=== PATIENT | male | born 1960 | race Caucasian/White ===

== ENCOUNTER 2017-12-30 09:01 | Emergency (ER) | payer OTHER, SELFPAY ==
[2017-12-30 09:01] VITALS: BP 164/99; PULSE 57; RESP 14; TEMP 36.9; O2SAT 98; BMI 29.3
--- NOTE | 2017-12-30 09:15 | RAD_ITS ---
STUDY: X-RAY CHEST REASON FOR EXAM: Male, 57 years old. 3 hour history of chest pain. TECHNIQUE: PA and lateral views of the chest. COMPARISON: None. FINDINGS: EKG electrodes are seen. The lungs are clear and expanded. There is no demonstrated pleural abnormality. Normal size heart. Normal mediastinum and jamie. Normal visualized pulmonary arteries. Normal visualized aortic arch and descending thoracic aorta. There are diffuse degenerative changes of the visualized thoracic spine. Normal visualized ribs, clavicles, and shoulders. There is no demonstrated abnormality of the visualized soft tissue structures of the upper abdomen. RAD/Chest PA and Lateral IMPRESSION: No acute abnormality is seen. Electronically Signed: Leo Lema MD at 10:36 EST Tel [phone], Service support ,
--- NOTE | 2017-12-30 09:15 | EKG12_ITS ---
Test Reason : CP Blood Pressure : / mmHG Vent. Rate : 056 BPM Atrial Rate : 056 BPM P-R Int : 184 ms QRS Dur : 098 ms QT Int : 414 ms P-R-T Axes : 001 021 044 degrees QTc Int : 399 ms Sinus bradycardia Otherwise normal ECG Confirmed by DANIEL URVALCABA MD ([id number]), slot editor GUY LAZO ([id number]) on 01/03/2018 4:36:09 PM Referred By: JESS
--- NOTE | 2017-12-30 09:22 | ED.DCSUM_ITS ---
- ER Visit Summary Date of Service: 12/30/17 Chief Complaint: [] Chest pain History of Present Illness: The patient is a 57 M [] complaining of midsternal chest pain beginning 3 hours ago while driving. Reports he was driving back from a job site. He felt as if it may have been indigestion and took his Prevacid, however this did not relieve his symptoms. He took his blood pressure at home with an automated machine and got a 180/90 reading. He reports he recently was started on blood pressure medication 1 month ago and reports that he has been compliant with losartan. He denies any shortness of breath or diaphoresis with these symptoms. Reports slight radiation to the right side of his neck. Physical Examination: [] Afebrile, vital signs stable. 57-year-old male no acute distress. Cardiovascular exam is regular rate and rhythm. Lungs are clear to auscultation. Abdomen is soft and nontender. No lower extremity edema. Remainder of exam is unremarkable. Test Results: [] Chest x-ray: Negative EKG: Normal sinus rhythm rate of 56 without ischemic changes or ectopy. EKG #2: Normal sinus rhythm, rate of 53 without ischemic changes or ectopy. Labs: Negative. Troponin negative. Troponin #2 negative. Emergency Department Course and Treatment: [] Patient was evaluated for chest pain. His SRI risk score is 0 out of 7. He underwent routine screening including a delta troponin with a repeat EKG which were both negative. He reportedly was symptom-free after one nitroglycerin tablet. Patient was strongly encouraged to follow-up with his primary care physician and receive an outpatient stress test. He was instructed to return should he have further chest pain. He voices understanding of discharge instructions and is amenable to outpatient follow-up. All questions answered in layman's terms. Treatment Plan: [] Follow-up with PCP for outpatient stress test. Disposition: [] Discharge, stable. Impression: [] Chest pain This note was generated with [employer] dictation software. It may contain incorrect words, spelling, and punctuation that were not noted in review of the chart prior to signing ED Disposition - Plan for ED Patient: Chief Complaint: Chest Pain Referrals: [facility] Doctor,Out of [NON-STAFF] -
[2017-12-30 09:24] LABS: Absolute Lymphocyte Count 2.19 X10^3/ul (0.83-4.51); Absolute Neutrophil Count 3.8 X10^3/uL (2.0-7.7); Basophil# 0.05 X10^3/uL; Basophil% 0.7 % (0-1); Eosinophil# 0.22 X10^3/uL; Eosinophils% 3.3 % (0-5); Hematocrit 46.3 % (40-54); Hemoglobin 15.6 g/dl (13.0-16.5); Lymphocyte # 2.19 X10^3/ul (4.0); Lymphocyte % 32.4 % (19-41); Mean Corp Hgb Conc 33.7 g/gl (32-36); Mean Corpuscular Hgb 30.8 pg (27.0-32.0); Mean Corpuscular Volume 91.5 fL (80-94); Mean Platelet Vol. 9.1 fl (6.2-12.0); Monocyte# 0.51 X10^3/uL; Monocyte% 7.5 % (0-10); Neutrophil # 3.76 X10^3/uL (2.7-7.7); Neutrophil % 55.7 % (47-70); Platelet Count 250 K/mm3 (150-450); RBC Distribution Width SD 42.7 fl (35.1-43.9); Red Blood Count 5.06 M/mm3 (4.6-6.2); White Blood Count 6.8 K/mm3 (4.4-11.0)
[2017-12-30 09:25] LABS: POSITIVE COUNT NO; POSITIVE DIFFERENTIAL NO; POSITIVE MORPHOLOGY NO
[2017-12-30] MEDS: Aspirin 81 MG TAB.CHEW 324 MG PO (09:25)
[2017-12-30 09:27] VITALS: BP 160/99; PULSE 63
[2017-12-30 09:32] LABS: D-Dimer Quantitative (DVT/PE) < 0.27 FEU/ug/m (0.27-0.49)
[2017-12-30 09:36] LABS: Anion Gap 7 (5-15); BUN 19 mg/dL (7-18); BUN/Creat Ratio 18.3 RATIO (10-20); Calcium,Total 8.9 mg/dL (8.5-10.1); Chloride 106 mmol/L (98-107); Creatinine, Serum 1.04 mg/dL (0.70-1.30); EST Glomerular Filtration Rate 78 mL/min (>60); Est Glom Filt Rate - Afr Amer 94 mL/min (>60); Estimated Creatinine Clearance 77.42 ml/min; Glucose 105 mg/dL (74-106); Potassium 3.8 mmol/L (3.5-5.1); Sodium Level 142 mmol/L (136-145)
[2017-12-30 10:40] VITALS: BP 138/86; PULSE 54; RESP 16; O2SAT 98
--- NOTE | 2017-12-30 10:57 | EKG12_ITS ---
Test Reason : CP REPEAT Blood Pressure : / mmHG Vent. Rate : 053 BPM Atrial Rate : 053 BPM P-R Int : 200 ms QRS Dur : 090 ms QT Int : 424 ms P-R-T Axes : 013 021 035 degrees QTc Int : 397 ms Sinus bradycardia Otherwise normal ECG Confirmed by DANIEL RUVALCABA MD ([id number]), communications editor GUY LAZO ([id number]) on 01/03/2018 4:36:35 PM Referred By: IJEOMA Confirmed By:DANIEL RUVALCABA MD
[2017-12-30 11:00] VITALS: BP 140/94; PULSE 52; RESP 14; O2SAT 98
--- NOTE | 2017-12-30 11:50 | ED.DEP ---
ED Disposition - Plan for ED Patient: Disposition: Home or Assisted Living Chief Complaint: Chest Pain Instructions: ED Chest Pain Atypical Unkn Cause Referrals: [facility],Out of [NON-STAFF] -
[2017-12-30 11:52] VITALS: BP 143/85; PULSE 62; RESP 16; O2SAT 98
--- NOTE | 2017-12-30 12:03 | ED.RN ---
1200-Verbal and written d/c instructions given. All questions answered. Skin w/d. ABCs intact. Gait steady out of department.
== END 2017-12-30 12:04 | disposition home or self-care (01) ==
PROVIDERS: Emergency Provider Emergency Medicine; Family Provider Family Medicine; PCP Family Medicine
DX: R07.89 Other chest pain (principal); E78.00 Pure hypercholesterolemia, unspecified; K21.9 Gastro-esophageal reflux disease without esophagitis; M10.9 Gout, unspecified; F32.9 Major depressive disorder, single episode, unspecified; Z79.899 Other long term (current) drug therapy
CPT/HCPCS: 71046; 80048; 84484; 85025; 85379; 93005; 99285; A4216

== ENCOUNTER → 2020-10-06 08:09 | Outpatient (CLI) | payer OTHER, SELFPAY ==
--- NOTE | 2020-10-06 08:15 | US_ITS ---
STUDY: ABDOMINAL ULTRASOUND - RIGHT UPPER QUADRANT REASON FOR VISIT: Male, 59 years old rug pain TECHNIQUE: Ultrasound evaluation of the right upper quadrant was performed with real-time and static alvarez-scale imaging. TECHNICAL QUALITY: Adequate. COMPARISON: None. FINDINGS: Liver: The liver measures 12.9 cm. There is normal echogenicity of the liver. The bile ducts are within normal limits. There is hepatic color flow. The direction of portal flow is hepatopetal. There is no demonstrated mass lesion. Gallbladder: Normal distended gallbladder. The gallbladder wall measures 2.0 mm. There is a negative sonographic Bran''s sign. There is no pericholecystic fluid. There are no gallstones. Common Bile Duct (C.B.D.): The common bile duct measures 4.0 mm. Pancreas: Normal size of the head, body and tail of the pancreas. There is normal echogenicity of the pancreas. There is no demonstrated pancreatic mass or cyst. Right Kidney: Normal size of the right kidney. The right kidney measures 10.9 cm x 5.1 cm x 5.6 cm. Normal renal cortex. The right cortex measures 1.8 cm. There is no demonstrated renal mass or cyst. There is no right hydronephrosis. US/Abdomen Limited IMPRESSION: Normal right upper quadrant ultrasound examination. Electronically Signed: Leo Lema, at 12:50 EST , Service support ,
== END ==
PROVIDERS: PCP Family Medicine; Referring Provider Physician Assistant; Visit Provider Physician Assistant
DX: R10.11 Right upper quadrant pain (principal); F10.99 Alcohol use, unspecified with unspecified alcohol-induced disorder
CPT/HCPCS: 76705

== ENCOUNTER 2022-01-23 09:25 | Emergency (ER) | payer OTHER, SELFPAY ==
[2022-01-23 09:27] VITALS: BP 170/102; PULSE 56; RESP 14; TEMP 35.9; O2SAT 98; BMI 28.8
--- NOTE | 2022-01-23 09:44 | RAD_ITS ---
STUDY: X-RAY CHEST REASON FOR EXAM: Male, 61 years old. chest pain TECHNIQUE: Single AP portable view of the chest. COMPARISON: 12/30/2017 FINDINGS: The lungs are clear and expanded. There is no demonstrated pleural abnormality. Normal size heart. Normal mediastinum and jamie. Normal visualized pulmonary arteries. Normal visualized aortic arch and descending thoracic aorta. Normal visualized thoracic spine. Normal visualized ribs, clavicles, and shoulders. There is no demonstrated abnormality of the visualized soft tissue structures of the upper abdomen. RAD/Chest 1 View (Portable) IMPRESSION: Normal x-ray examination of the chest. Electronically Signed: Dipesh Hilario MD at 10:34 EDT ,
--- NOTE | 2022-01-23 09:44 | EKG12_ITS ---
Test Reason : Blood Pressure : / mmHG Vent. Rate : 062 BPM Atrial Rate : 062 BPM P-R Int : 198 ms QRS Dur : 094 ms QT Int : 406 ms P-R-T Axes : 041 027 048 degrees QTc Int : 412 ms Normal sinus rhythm Normal ECG Confirmed by PEG EDMONDS, DANIEL ([id number]), graphic editor LAVON ANTON ([id number]) on 01/26/2022 10:54:37 AM Referred By: COOPER Confirmed By:DANIEL RUVALCABA MD
--- NOTE | 2022-01-23 09:45 | EDS_ITS ---
HPI History of Present Illness Chief Complaint: Chest Pain Detail of Chief Complaint: Chest pain that started last evening around 3 AM. Informant: patient Narrative Narrative: Patient presents with chest discomfort S around 3 AM last evening. Patient describes a tightness without any radiation. He was nauseated and gagged and felt lightheaded. Currently rates the discomfort a 3 or 4 out of 10. Patient states that he thinks it may be anxiety as he feels anxious. Patient does have history of anxiety and depression and had been off his depression medications for several months but then started feeling depressed again so his primary care physician started him on escitalopram about 4 5 days ago. Patient has been drinking alcohol and believes he is an alcoholic. Patient states he had 3 bourbons last night and 3 beers. He would like to go through detox from alcohol. Patient has had fleeting thoughts of self-harm but does not feel like he would act on them. Patient has no plan on harming himself. Prior Similar Symptoms: No PFSH PFSH Medical History Alcohol use, unspecified with unspecified alcohol-induced disorder Anxiety Essential hypertension Gout Hyperlipidemia Insomnia Home Medications losartan 50 mg tablet 50 mg PO DAILY 12/30/21 [History Last Taken Unknown] simvastatin 20 mg tablet 20 mg PO DAILY 12/30/21 [History Last Taken Unknown] omeprazole 20 mg capsule,delayed release 20 mg PO .QOD cap 01/06/22 [History Last Taken Unknown] escitalopram oxalate 10 mg PO DAILY 01/23/22 [History Last Taken Unknown] lorazepam [Ativan] 1 mg PO TID PRN #10 tab 01/23/22 [Rx Last Taken Unknown] Allergy/AdvReac Type Severity Reaction Status Date / Time No Known Allergies Allergy Verified 01/23/22 09:27 Family History Mother Breast cancer Sister Breast cancer Social History Smoking Status: Former smoker alcohol intake: current alcohol intake frequency: 0-2 drinks per day ROS ROS ED ROS Narrative Anxiety, depression Review of Systems ROS Unobtainable: other Constitutional Constitutional ED: Reports lethargy; Denies chills, fever(s), sweats or weight loss Eyes Eyes: Denies blurry vision, change in vision or diplopia ENT ENT ED: Denies rhinorrhea or sore throat Cardiovascular Cardiovascular: Reports chest pain and racing heartbeat; Denies orthopnea Respiratory/Chest Respiratory/Chest: Reports dyspnea and dyspnea on exertion; Denies cough, orthopnea or sputum Gastrointestinal Gastrointestinal: Reports nausea; Denies abdominal pain, diarrhea or vomiting Genitourinary Genitourinary ED: Denies dysuria, hematuria or urinary frequency Musculoskeletal Musculoskeletal: Denies arthralgias, back pain, myalgias or neck pain Integumentary Denies abscess, Abrasions or rash Neurologic Neurologic: Denies headache(s) or weakness Psychiatric Psychiatric: Denies anxiety, depression or suicidal thoughts Endocrine Endocrinology: Denies polydipsia, polyphagia or polyuria Hematologic/Lymphatic Hematologic/Lymphatic: Denies easy bleeding, easy bruising or lymphadenopathy Allergic/Immunologic Allergic/Immunologic ED: Denies mouth swelling, tongue swelling or urticaria EXAM Physical Exam Const Vital Signs: 01/23/22 09:27 01/23/22 09:57 01/23/22 11:33 Temperature 96.7 F L 97.8 F Temperature Source Temporal Temporal Pulse Rate 56 L 63 Respiratory Rate 14 18 Blood Pressure 170/102 H 155/86 H Blood Pressure Mean 124 109 Pulse Ox 98 98 Oxygen Delivery Method Room Air Room Air Room Air 01/23/22 11:52 Temperature Temperature Source Pulse Rate 66 Respiratory Rate 16 Blood Pressure 153/86 H Blood Pressure Mean 108 Pulse Ox 98 Oxygen Delivery Method Room Air Positive well nourished and well developed General Appearance ED: well developed and NAD HEENT Reports TM's clear and moist mucous membranes normocephalic and atraumatic; Negative for trauma or tenderness Tympanic Membrane ED: Yes TM's clear Eyes PERRL and EOMs intact bilaterally General Eye ED: Negative for pale conjunctiva or scleral icterus Neck no lymphadenopathy, supple and no JVD General: Negative for tenderness Chest Wall inspection of chest normal and palpation of chest normal Chest: Negative for tenderness Resp normal respiratory effort and clear to auscultation bilaterally Effort and Inspection: Negative for respiratory distress or pain with movement Auscultation: Negative for rhonchi, wheezes or diminished lung sounds Cardio regular rate, regular rhythm, S1 normal heart sound, S2 normal heart sound and no murmurs Peripheral Pulses: pulses 2+ throughout GI normal to inspection, nondistended, normoactive bowel sounds, soft to palpation, non-tender, non-distended and no masses Back/Spine no CVA tenderness and no thoracic nor lumbar tenderness Extremity normal to inspection General Extremety ED: Negative for edema General Extremity: Negative for edema Neuro oriented x3, CN's II-XII intact bilaterally, no sensory deficits noted and gait normal Sensorium / Orientation: awake, alert, oriented to person, oriented to place and oriented to time Motor Exam: strength 5/5 throughout and strength abnormal Psych mental status grossly normal Skin no rashes or lesions noted and no wounds Heart Score History: Moderately Suspicious ECG: Normal Age: >45 - <65 years Risk Factors: 1 or 2 Risk Factors Troponin: </= Normal Limit Score: 3 MDM MDM MDM Narrative Medical decision making narrative: IV line established on arrival. Patient placed on a orthopaedic surgeon. Patient was given aspirin. Patient was given a milligram of Ativan. Lab work-up was unremarkable. Talk screen was negative and alcohol was negative. At this point my suspicion for acute coronary syndrome is low. Patient would like alcohol detox. I will discuss case with hospitalist evaluate for admission for alcohol detox. Patient ultimately decided that he did not want to be admitted for alcohol detox. Patient was seen by her social work specialist. I do not feel he is having acute coronary syndrome. Patient will have outpatient follow-up with his primary care physician. He did asked that I write him for a few Ativan to help with his anxiety which I will do until he can follow-up with his primary care physician. Patient advised to return if condition should worsen anyway. At this time he is refusing admission. Lab Data Attestation: I reviewed the patient's lab results. Labs: Laboratory Results - last 24 hr 01/23/22 01/23/22 01/23/22 09:50 09:50 09:50 WBC 5.9 RBC 4.89 Hgb 15.3 Hct 42.4 MCV 86.7 MCH 31.3 MCHC 36.1 H RDW Std Deviation 38.5 RDW Coeff of Brittnee 12.1 Plt Count 257 MPV 9.6 Immature Gran % (Auto) 0.500 Neut % (Auto) 73.1 H Lymph % (Auto) 19.4 [place] % (Auto) 5.8 Eos % (Auto) 0.3 Baso % (Auto) 0.9 Absolute Neuts (auto) 4.3 Absolute Lymphs (auto) 1.14 Nucleated RBC % 0 Sodium 139 Cancelled Potassium 3.9 Cancelled Chloride 109 H Cancelled Carbon Dioxide 24.0 Cancelled Anion Gap 6 Cancelled BUN 22 H Cancelled Creatinine 1.08 Cancelled Estim Creat Clear Calc 70.92 Est GFR (MDRD) Af Amer 89 Cancelled Est GFR (MDRD) Non-Af 74 Cancelled BUN/Creatinine Ratio 20.4 H Cancelled Glucose 109 H Cancelled Calcium 8.6 Cancelled Phosphorus Magnesium Total Bilirubin 0.90 Cancelled Direct Bilirubin 0.24 Cancelled AST 16 Cancelled ALT 30 Cancelled Alkaline Phosphatase 63 Cancelled Troponin I High Sens < 3 L Total Protein 6.9 Cancelled Albumin 3.6 Cancelled Globulin 3.3 Cancelled Urine Opiates Screen Urine Methadone Screen Ur Barbiturates Screen Ur Phencyclidine Scrn Ur Amphetamines Screen MDMA (Ecstasy) Screen U Benzodiazepines Scrn Urine Cocaine Screen U Cannabinoids Screen Ur Drug Screen Comment Ethyl Alcohol 01/23/22 01/23/22 01/23/22 09:50 10:00 11:45 WBC RBC Hgb Hct MCV MCH MCHC RDW Std Deviation RDW Coeff of Brittnee Plt Count MPV Immature Gran % (Auto) Neut % (Auto) Lymph % (Auto) [place] % (Auto) Eos % (Auto) Baso % (Auto) Absolute Neuts (auto) Absolute Lymphs (auto) Nucleated RBC % Sodium Potassium Chloride Carbon Dioxide Anion Gap BUN Creatinine Estim Creat Clear Calc Est GFR (MDRD) Af Amer Est GFR (MDRD) Non-Af BUN/Creatinine Ratio Glucose Calcium Phosphorus Magnesium 2.4 Total Bilirubin Direct Bilirubin AST ALT Alkaline Phosphatase Troponin I High Sens < 3 L Total Protein Albumin Globulin Urine Opiates Screen NEGATIVE Urine Methadone Screen NEGATIVE Ur Barbiturates Screen NEGATIVE Ur Phencyclidine Scrn NEGATIVE Ur Amphetamines Screen NEGATIVE MDMA (Ecstasy) Screen NEGATIVE U Benzodiazepines Scrn NEGATIVE Urine Cocaine Screen NEGATIVE U Cannabinoids Screen NEGATIVE Ur Drug Screen Comment Ethyl Alcohol < 3.0 01/23/22 11:45 WBC RBC Hgb Hct MCV MCH MCHC RDW Std Deviation RDW Coeff of Brittnee Plt Count MPV Immature Gran % (Auto) Neut % (Auto) Lymph % (Auto) [place] % (Auto) Eos % (Auto) Baso % (Auto) Absolute Neuts (auto) Absolute Lymphs (auto) Nucleated RBC % Sodium Potassium Chloride Carbon Dioxide Anion Gap BUN Creatinine Estim Creat Clear Calc Est GFR (MDRD) Af Amer Est GFR (MDRD) Non-Af BUN/Creatinine Ratio Glucose Calcium Phosphorus 2.7 Magnesium Total Bilirubin Direct Bilirubin AST ALT Alkaline Phosphatase Troponin I High Sens Total Protein Albumin Globulin Urine Opiates Screen Urine Methadone Screen Ur Barbiturates Screen Ur Phencyclidine Scrn Ur Amphetamines Screen MDMA (Ecstasy) Screen U Benzodiazepines Scrn Urine Cocaine Screen U Cannabinoids Screen Ur Drug Screen Comment Ethyl Alcohol Radiography Chest X-Ray - ED: 1 View Diagnostic Testing: Clinical Impression(s) from Imaging Studies Chest X-Ray 01/23/22 09:44 IMPRESSION: Normal x-ray examination of the chest. Electronically Signed: Dipesh Hilario MD at 10:34 EDT , 1 view chest x-ray obtained interpreted by myself as no acute disease process. Radiology in agreement. EKG Initial EKG: Attestation: I personally reviewed and interpreted this EKG as follows: Comments: Sinus rhythm with a ventricular rate of 62 bpm with no acute ST segment changes Discharge Plan Triage Chief Complaint: Chest Pain ED Provider: Rafa Price Dx/Rx/DC Orders Clinical Impression: Chest pain, Anxiety, Withdrawn from alcohol detoxification program Instructions: ED Anxiety Reaction, ED Chest Pain, Uncertain Cause, ED Alcohol Abuse Prescriptions: New lorazepam [Ativan] 1 mg tablet 1 mg PO TID PRN (Reason: anxiety) Qty: 10 RF: 0 No Action escitalopram oxalate 10 mg tablet 10 mg PO DAILY RF: 0 losartan 50 mg tablet 50 mg PO DAILY RF: 0 simvastatin 20 mg tablet 20 mg PO DAILY RF: 0 omeprazole 20 mg capsule,delayed release(DR/EC) 20 mg PO .QOD RF: 0 Primary Care Provider: Arturo Gagnon Referrals: Arturo Gagnon MD [Primary Care Provider] - 3-5 Days Disposition Disposition: Home, Self Care
[2022-01-23] MEDS: Aspirin 81 MG TAB.CHEW 324 MG PO (10:12)
[2022-01-23] MEDS: 0.9% Normal Saline 1,000 ML 150 ML IV (10:12)
[2022-01-23] MEDS: Ondansetron 4 MG/2 ML Vial IV (10:13)
[2022-01-23] MEDS: LORazepam 2 MG/ML Syringe 1 MG IV (10:14)
[2022-01-23 10:15] LABS: Absolute Lymphocyte Count 1.14 X10^3/uL (0.83-4.51); Absolute Neutrophil Count 4.3 X10^3/uL (2.0-7.7); Basophil# 0.05 X10^3/uL; Basophil% 0.9 % (0-1); Eosinophil# 0.02 X10^3/uL; Eosinophils% 0.3 % (0-5); Hematocrit 42.4 % (40-54); Hemoglobin 15.3 g/dL (13.0-16.5); Lymphocyte # 1.14 X10^3/ul (0.83-4.51); Lymphocyte % 19.4 % (19-41); Mean Corp Hgb Conc 36.1 g/dL (32-36); Mean Corpuscular Hgb 31.3 pg (27.0-32.0); Mean Corpuscular Volume 86.7 fL (80-94); Mean Platelet Vol. 9.6 fl (6.2-12.0); Monocyte# 0.34 X10^3/uL; Monocyte% 5.8 % (0-10); NRBC Flagged by Analyzer 0 % (0-5); Neutrophil % 73.1 % (47-70); Platelet Count 257 K/mm3 (150-450); RBC Distribution Width CV 12.1 % (11.6-14.6); RBC Distribution Width SD 38.5 fl (35.1-43.9); Red Blood Count 4.89 M/mm3 (4.6-6.2); White Blood Count 5.9 K/mm3 (4.4-11.0)
[2022-01-23 10:26] LABS: Amphetamine Urine VISTA NEGATIVE (<1000 ng/mL); Barbiturate Urine VISTA NEGATIVE (< 200 ng/mL); Benzodiazepine Urine VISTA NEGATIVE (< 200 ng/mL); Cocaine Urine VISTA NEGATIVE (< 300 ng/mL); Ecstacy Urine VISTA NEGATIVE (< 500 ng/mL); Methadone Urine VISTA NEGATIVE (< 300 ng/mL); PCP Urine VISTA NEGATIVE (< 25 ng/mL); THC Urine VISTA NEGATIVE (< 50 ng/mL); Vista UDS pH Range 7
[2022-01-23 10:39] LABS: AST(SGOT) 16 U/L (15-37); Alanine Aminotransfer ALT/SGPT 30 U/L (16-61); Albumin, Serum 3.6 g/dL (3.2-5.0); Alkaline Phosphatase 63 U/L (45-117); Anion Gap 6 (5-15); BUN 22 mg/dL (7-18); BUN/Creat Ratio 20.4 RATIO (10-20); Bilirubin, Direct 0.24 mg/dL (0.00-0.30); Calcium,Total 8.6 mg/dL (8.5-10.1); Chloride 109 mmol/L (98-107); Creatinine, Serum 1.08 mg/dL (0.70-1.30); EST Glomerular Filtration Rate 74 mL/min (>60); Est Glom Filt Rate - Afr Amer 89 mL/min (>60); Estimated Creatinine Clearance 70.92 ml/min; Globulin 3.3 g/dL (2.2-4.2); Glucose 109 mg/dL (74-106); Potassium 3.9 mmol/L (3.5-5.1); Protein, Total 6.9 g/dL (6.4-8.2); Sodium Level 139 mmol/L (136-145); Troponin-I HS < 3 pg/mL (3.0-78.0)
[2022-01-23 10:43] LABS: Alcohol, Blood (Medical)-Serum < 3.0 mg/dL
--- NOTE | 2022-01-23 11:22 | NURSING ---
DR SANDERS FOR DR JONES
--- NOTE | 2022-01-23 11:23 | PCM.HP.STD ---
HPI - General General Date of Admission: 01/23/22 Date of Service: 01/23/22 Chief Complaint: Chest pain HPI Narrative The patient is a 61 y/o M w/ PMHx: Anxiety and Depressionr ecentl 3 bourbons the evening prior with 3 beers chest pressure, anxious, nauseated with dry heaves, continuous since 3 am Detox chest pain PFSH Medical History Alcohol use, unspecified with unspecified alcohol-induced disorder Anxiety Essential hypertension Gout Hyperlipidemia Insomnia Home Medications losartan 50 mg tablet 50 mg PO DAILY 12/30/21 [History Last Taken Unknown] simvastatin 20 mg tablet 20 mg PO DAILY 12/30/21 [History Last Taken Unknown] omeprazole 20 mg capsule,delayed release 20 mg PO .QOD cap 01/06/22 [History Last Taken Unknown] Allergy/AdvReac Type Severity Reaction Status Date / Time No Known Allergies Allergy Verified 01/23/22 09:27 Family History Mother Breast cancer Sister Breast cancer Social History Smoking Status: Former smoker alcohol intake: current alcohol intake frequency: 0-2 drinks per day Vital Signs Vital Signs Vital Signs: 01/23/22 09:27 01/23/22 09:57 Temperature 96.7 F L Temperature Source Temporal Pulse Rate 56 L Respiratory Rate 14 Blood Pressure 170/102 H Blood Pressure Mean 124 Pulse Ox 98 Oxygen Delivery Method Room Air Room Air Weight Weight: 195 lb 5.273 oz Body Mass Index (BMI) 28.8 Results Lab / Micro Data Result Diagrams: 01/23/22 09:50 01/23/22 09:50 Labs: Laboratory Results - last 24 hr 01/23/22 09:50: WBC 5.9, RBC 4.89, Hgb 15.3, Hct 42.4, MCV 86.7, MCH 31.3, MCHC 36.1 H, RDW Std Deviation 38.5, RDW Coeff of Brittnee 12.1, Plt Count 257, MPV 9.6, Immature Gran % (Auto) 0.500, Neut % (Auto) 73.1 H, Lymph % (Auto) 19.4, [place] % (Auto) 5.8, Eos % (Auto) 0.3, Baso % (Auto) 0.9, Absolute Neuts (auto) 4.3, Absolute Lymphs (auto) 1.14, Nucleated RBC % 0 01/23/22 09:50: Sodium 139, Potassium 3.9, Chloride 109 H, Carbon Dioxide 24.0, Anion Gap 6, BUN 22 H, Creatinine 1.08, Estim Creat Clear Calc 70.92, Est GFR (MDRD) Af Amer 89, Est GFR (MDRD) Non-Af 74, BUN/Creatinine Ratio 20.4 H, Glucose 109 H, Calcium 8.6, Total Bilirubin 0.90, Direct Bilirubin 0.24, AST 16, ALT 30, Alkaline Phosphatase 63, Troponin I High Sens < 3 L, Total Protein 6.9, Albumin 3.6, Globulin 3.3 01/23/22 09:50: Sodium Cancelled, Potassium Cancelled, Chloride Cancelled, Carbon Dioxide Cancelled, Anion Gap Cancelled, BUN Cancelled, Creatinine Cancelled, Est GFR (MDRD) Af Amer Cancelled, Est GFR (MDRD) Non-Af Cancelled, BUN/Creatinine Ratio Cancelled, Glucose Cancelled, Calcium Cancelled, Total Bilirubin Cancelled, Direct Bilirubin Cancelled, AST Cancelled, ALT Cancelled, Alkaline Phosphatase Cancelled, Total Protein Cancelled, Albumin Cancelled, Globulin Cancelled 01/23/22 09:50: Ethyl Alcohol < 3.0 01/23/22 10:00: Urine Opiates Screen NEGATIVE, Urine Methadone Screen NEGATIVE, Ur Barbiturates Screen NEGATIVE, Ur Phencyclidine Scrn NEGATIVE, Ur Amphetamines Screen NEGATIVE, MDMA (Ecstasy) Screen NEGATIVE, U Benzodiazepines Scrn NEGATIVE, Urine Cocaine Screen NEGATIVE, U Cannabinoids Screen NEGATIVE, Ur Drug Screen Comment Radiology Impression Chest X-Ray 01/23/22 09:44 IMPRESSION: Normal x-ray examination of the chest. Electronically Signed: Dipesh Hilario MD at 10:34 EDT ,
--- NOTE | 2022-01-23 11:27 | NURSING ---
PCU [facility] CP, ALCOHOL DETOX, ANXIETY, DEPRESSION
[2022-01-23 11:33] VITALS: BP 155/86; PULSE 63; RESP 18; TEMP 36.6; O2SAT 98
[2022-01-23 11:52] VITALS: BP 153/86; PULSE 66; RESP 16; O2SAT 98
[2022-01-23 12:19] LABS: Magnesium 2.4 mg/dL (1.6-2.6); Phosphorus 2.7 mg/dL (2.5-4.9); Troponin-I HS < 3 pg/mL (3.0-78.0)
--- NOTE | 2022-01-23 13:31 | ED.RN ---
PT WILL NOT BE ADMITTED. PT REQUESTED TO BE ADMITTED FOR TREATMENT OF ANXIETY AND DEPRESSION. PT REFUSES DETOX. PT DOES NOT WANT TREATMENT FOR ANYTHING OTHER THEN ANXIETY AND DEPRESSION. DR SANDERS AWARE. PT NOT SUITABLE A CARDIAC ADMISSION . DISCUSSED WITH PT IF HE NEEDED PSYCHIATRIC ADMISSION. PT STATES NO, I JUST NEED SOMETHING TO HELP ME SLEEP UNTIL I CAN SEE THE DR ON TUESDAY. DR GAMBOA AWARE
--- NOTE | 2022-01-23 13:41 | CM.ED ---
Social Work Consult: Mental Health Referral source: Nursing staff Chief Complaint: Patient reports anxiety and depression over the past few months that has interfered with patient sleeping and eating. Marital/Social History: . Living Situation: Lives alone. Support/Resources: No active community supports. Has family and friends checking in with patient daily. Education/Employment History: Retired. 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 Denies issues with comprehension or understanding. Mental Health Treatment/History: Depression, Anxiety. Recently started on new medication to manage mental health by PCP. Denies history of inpatient psychiatric placement. Was on an antidepressant for 10 years up until the past few months and patient decided to stop on own. Patient now on need medication to manage mental health as things are not going well. Triggers/Stressors: Change in medications. No other triggers/stressors identified. Coping skills: Going on walks with dog. Substance Abuse Hx: Alcohol abuse. Patient denies wanting treatment for substance abuse. Risk to Self/Others: Patient denies suicidal thoughts, plans, intents. Patient states to have had a suicidal thought in the past month with no plan or intent. Patient denies history of suicidal thoughts. Patient denies homicidal thoughts, plans, intents. Patient denies self harming behavior. Mental status Exam: A&Ox3 Appearance/General Behavior: Clean. Calm. Mood/Affect: Pleasant and engaged affect. Communication Pattern: Responds to questions. Thought Process: Appropriate. Denies visual and auditory hallucinations. Judgement: Fair Assessment: Met with patient and patient sister in room. Introduced self and social work case manager. Patient agreeable to speak with this social work case manager. Patient provided verbal permission for this social work case manager to speak openly with patient sister in room. Patient initially to be admitted for substance abuse treatment, patient now declining substance abuse treatment and states to want treatment for mental health, depression and anxiety. This social work case manager educating patient that [facility] does not have a mental health unit and patient is not able to be admitted for depression and anxiety. Patient reports understanding. Patient interested in outpatient services. Patient reports to be feeling better. Plan is for patient to discharge to the community with a prescription for Ativan and to follow up with PCP on Tuesday for possible medication changes. This social work case manager also encouraged patient to follow up with [facility] behavioral health program. Patient not willing for this social work case manager to set up outpatient mental health services but is open to information on counseling services and [facility] Behavioral Health program. This social work case manager also provided patient with crisis hotline and substance abuse resources. Patient with multiple questions about counseling services. This social work case manager able to answer patient questions. Patient with no concerns on returning to community with current plan. This social work case manager encouraged patient to return to the ED with an increase in suicidal thoughts or plan and to also reach out to crisis number. This social work case manager counseled patient on lethal means. Patient does report to have a firearm in the home. Patient is not open to having firearm removed from the home and does not feel that this is a concern. This social work case manager going over risk factors of firearms and mental health with patient while patient sister is present in room. Patient voiced understanding, no commitment to remove firearms from the home. Active support and listening provided to patient. Updated medical team. PLAN: Home No further services requested or indicated. Roxana ROCHE, AVI
== END 2022-01-23 14:58 | disposition home or self-care (01) ==
PROVIDERS: Family Medicine; Emergency Provider Emergency Medicine; PCP Family Medicine; Visit Provider Emergency Medicine
DX: R07.9 Chest pain, unspecified (principal); F41.9 Anxiety disorder, unspecified; F32.A Depression, unspecified; R06.00 Dyspnea, unspecified; E78.5 Hyperlipidemia, unspecified; I10 Essential (primary) hypertension; R11.0 Nausea; M10.9 Gout, unspecified; Z79.899 Other long term (current) drug therapy; Z87.891 Personal history of nicotine dependence
CPT/HCPCS: 71045; 80048; 80076; 80307; 82077; 83735; 84100; 84484; 85025; 93005; 96361; 96374; 96375; 99285; J7030; A4216; J2405

== ENCOUNTER 2022-01-27 12:47 | Outpatient (CLI) | payer OTHER, SELFPAY ==
--- NOTE | 2022-01-27 12:49 | ECHOCS_ITS ---
Reason For Study: Arrhythmia Procedure This was a 2D Doppler, Color Flow transthoracic echocardiogram. Contrast injection was performed. Exam performed in department. Left Ventricle Normal LV size. Left ventricular systolic function is normal. The estimated ejection fraction is 65 %. Stage 1 diastolic dysfunction. No regional wall motion abnormalities noted. Right Ventricle Normal RV size. Normal systolic function. Atria Normal left atrium. Normal right atrium. Mitral Valve Normal mitral valve. Tricuspid Valve Normal tricuspid valve. Aortic Valve Normal aortic valve. Trisinus/trileaflet aortic valve. Pulmonic Valve Normal pulmonic valve. Great Vessels Normal aortic root. The pulmonary artery is normal size. Normal inferior vena cava. Pericardium/Pleural No pericardial effusion. Medication Diluted definity 2ml given slow IV push to enhance endocardial definition. MMode/2D Measurements & Calculations LVIDd: 4.9 cm IVSd: 1.1 cm Ao root diam: 3.4 cm LVIDs: 3.1 cm LVPWd: 1.1 cm RVDd: 3.9 cm FS: 37.0 % LAV(MOD-bp): 44.2 ml LVAd ap4: 29.6 cm2 SV(MOD-sp4): 60.0 ml LAV(MOD-bp) Indexed: 22.1 ml/m2 LVLd ap4: 7.9 cm LAV(MOD-sp2): 46.4 ml EDV(MOD-sp4): 89.5 ml LAV(MOD-sp4): 38.0 ml EDV(sp4-el): 93.7 ml LVAs ap4: 15.4 cm2 LVLs ap4: 6.8 cm ESV(MOD-sp4): 29.4 ml ESV(sp4-el): 29.8 ml EF(MOD-sp4): 67.1 % EF(sp4-el): 68.2 % SV(sp4-el): 63.9 ml LA A4 area: 14.8 cm2 LA dimension(2D): 3.1 cm RA A4 area: 13.9 cm2 Doppler Measurements & Calculations MV E max casey: 73.3 cm/sec Lat Peak E' Casey: 9.2 cm/sec Med Peak E' Casey: 7.1 cm/sec MV A max casey: 98.8 cm/sec E/E' lat: 8.0 E/E' med: 10.3 MV E/A: 0.74 Ao V2 max: 143.0 cm/sec LV V1 max: 138.9 cm/sec PA V2 max: 92.5 cm/sec Ao max P.2 mmHg LV V1 max P.7 mmHg Ao V2 mean: 98.6 cm/sec Ao mean P.3 mmHg Ao V2 VTI: 28.8 cm ECHO/Echo Complete W/ Contrast Interpretation Summary Normal LV size. Left ventricular systolic function is normal. The estimated ejection fraction is 65 %. Stage 1 diastolic dysfunction. Contrast injection was performed. Ordering Physician: Adryan Nicolas Referring Physician: Arturo Gagnon Performed By: Tatyana Simons, BREANNA, RVT
== END 2022-01-27 23:59 | disposition home or self-care (01) ==
PROVIDERS: PCP Family Medicine; Referring Provider Internal Medicine Cardiovascular Disease; Visit Provider Internal Medicine Cardiovascular Disease
DX: R00.2 Palpitations (principal)
CPT/HCPCS: 93306; Q9957; A4216; C8929